=== PATIENT | female | born 1990 | race Caucasian/White ===

== ENCOUNTER 2017-02-28 19:06 | Emergency (ER) | payer OTHER ==
[~2017-02-28] VITALS: Ht 160 cm; Wt 56.2 kg
[~2017-02-28 19:06] MED LIST: ANTIVERT/2525 M1 PO; BACTRIM DS 8001 TA1 PO; CHEWABLE VITE1 CTB PO; CLEOCIN150 MG PO; CLINDAMYCIN150 MG PO; COLACE100 MG PO; FLAGYL500 MG PO; HYDROCODONE BIT1 T11 PO; IBUPROFEN600 MG PO; MACROBID100 M1 PO; MOTRIN800 MG PO; Motrin,Rufen800 MG PO; NORCO 325 MG-51 TAB PO; PERIDEX 480 ML480 ML PO; PRENATAL1 TA3 PO; PROCTOFOAM-HC 11 FOA RC; PROMETHAZINE25 M1 PO; PYRIDIUM200 M1 PO; PYRIDIUM200 MG PO
[2017-02-28] MEDS ORDERED: CYCLOBENZAPRINE5 M3 PO (20:44)
[2017-02-28] MEDS ORDERED: NAPROSYN500 MG PO (20:44)
== END 2017-02-28 20:57 | disposition home or self-care (01) ==
LOC: ED 19:06
DX: R51 Headache (principal); F17.200 Nicotine dependence, unspecified, uncomplicated; Z88.0 Allergy status to penicillin; R11.0 Nausea

== ENCOUNTER 2017-03-21 14:59 | Emergency (ER) | payer OTHER ==
[~2017-03-21] VITALS: Ht 152.4 cm; Wt 63.5 kg
[~2017-03-21 14:59] MED LIST changes: +CYCLOBENZAPRINE5 M3 PO; +NAPROSYN500 MG PO
[2017-03-21] MEDS ORDERED: CYCLOBENZAPRINE10 MG PO (18:32)
[2017-03-21] MEDS ORDERED: NAPROSYN500 MG PO (18:32)
== END 2017-03-21 18:50 | disposition home or self-care (01) ==
LOC: ED 14:59
DX: S16.1XXA Strain of muscle, fascia and tendon at neck level, initial encounter (principal); F17.200 Nicotine dependence, unspecified, uncomplicated; Z88.0 Allergy status to penicillin; Z88.1 Allergy status to other antibiotic agents; X58.XXXA Exposure to other specified factors, initial encounter; Y93.9 Activity, unspecified; Y92.9 Unspecified place or not applicable; Y99.9 Unspecified external cause status

== ENCOUNTER 2017-06-13 13:09 | Emergency (ER) | payer SELFPAY ==
[~2017-06-13] VITALS: Ht 162.5 cm; Wt 59.0 kg
[~2017-06-13 13:09] MED LIST changes: +CYCLOBENZAPRINE10 MG PO
== END 2017-06-13 15:29 | disposition home or self-care (01) ==
LOC: ED 13:09
DX: S96.911A Strain of unspecified muscle and tendon at ankle and foot level, right foot, initial encounter (principal); S90.01XA Contusion of right ankle, initial encounter; F17.200 Nicotine dependence, unspecified, uncomplicated; Z88.0 Allergy status to penicillin; Z88.1 Allergy status to other antibiotic agents; X50.1XXA Overexertion from prolonged static or awkward postures, initial encounter; Y93.01 Activity, walking, marching and hiking; Y92.89 Other specified places as the place of occurrence of the external cause; Y99.9 Unspecified external cause status

== ENCOUNTER 2017-11-03 05:05 | Emergency (ER) | payer OTHER ==
[~2017-11-03] VITALS: Ht 162.5 cm; Wt 54.4 kg
[2017-11-03 05:55] LABS: BILIRUBIN 1+ (NEGATIVE); BLOOD NEGATIVE (NEGATIVE); CLARITY SL CLOUDY (CLEAR); COLOR YELLOW (YELLOW); GLUCOSE NEGATIVE (NEGATIVE); KETONE TRACE (NEGATIVE); LEUKO ESTERASE NEGATIVE (NEGATIVE); NITRITE NEGATIVE (NEGATIVE); PH 6.5 (5.0-9.0); SPECIFIC GRAVITY 1.025 (1.005-1.030)
[2017-11-03 06:04] LABS: BASO % 0.4 % (0.0-1.0); EOS # 0.1 10*3/uL (0.0-0.4); EOS % 2.3 % (1.0-4.0); HEMATOCRIT 39.1 % (37.0-47.0); HEMOGLOBIN 12.9 g/dl (12.0-16.0); LYMPH # 2.1 10*3/uL (1.3-4.4); LYMPH % 38.2 % (27.0-41.0); MEAN CELL VOLUME 94.2 fl (81.0-99.0); MEAN CORPUSCULAR HGB 31.1 pg (27.0-31.0); MEAN PLATELET VOLUME 9.7 fl (9.6-12.3); MONO # 0.3 10*3/uL (0.1-1.0); NEUT % 53.9 % (47.0-73.0); PLATELET COUNT AUTOMATED 172 10*3/uL (130-400); RED BLOOD COUNT 4.15 10*6/uL (4.10-5.10); WHITE BLOOD COUNT 5.6 10*3/uL (4.8-10.8)
[2017-11-03 06:26] LABS: ALBUMIN 3.6 gm/dl (3.1-4.5); ALKALINE PHOSPHATASE 44 U/L (45-117); BUN 12 mg/dl (7-24); CHLORIDE 109 mmol/L (98-107); CREATININE 0.92 mg/dL (0.55-1.02); LIPASE 210 U/L (73-393); POTASSIUM 4.2 mmol/L (3.5-5.1); SGOT/AST 13 IU/L (3-35); SGPT/ALT 12 U/L (12-78); SODIUM 142 mmol/L (136-145); TOTAL PROTEIN 6.3 gm/dL (6.4-8.2)
[2017-11-03 06:33] LABS: BACTERIA 2+; CALCIUM OXALATE CRYSTALS TRACE; MUCOUS 1+
[2017-11-03] MEDS ORDERED: NAPROSYN500 MG PO (10:22)
== END 2017-11-03 10:36 | disposition home or self-care (01) ==
LOC: ED 05:05
PROVIDERS: Emergency Medicine
DX: N83.8 Other noninflammatory disorders of ovary, fallopian tube and broad ligament (principal); F17.200 Nicotine dependence, unspecified, uncomplicated; Z88.1 Allergy status to other antibiotic agents; Z88.0 Allergy status to penicillin; Z79.899 Other long term (current) drug therapy

== ENCOUNTER 2018-04-16 17:42 | Emergency (ER) | payer OTHER ==
[~2018-04-16] VITALS: Wt 52.2 kg
[2018-04-16] MEDS ORDERED: PREDNISONE20 M1 PO (19:58)
[2018-04-16] MEDS ORDERED: CYCLOBENZAPRINE10 MG PO (19:58)
== END 2018-04-16 20:33 | disposition home or self-care (01) ==
LOC: ED 17:42
DX: M43.6 Torticollis (principal); M54.2 Cervicalgia; R20.0 Anesthesia of skin; R20.2 Paresthesia of skin; Z88.0 Allergy status to penicillin; Z88.1 Allergy status to other antibiotic agents; Z88.6 Allergy status to analgesic agent

== ENCOUNTER 2018-09-24 23:59 | Emergency (ER) | payer OTHER ==
[~2018-09-24] VITALS: Ht 162.5 cm; Wt 56.7 kg
[~2018-09-24 23:59] MED LIST changes: +PREDNISONE20 M1 PO
== END 2018-09-25 01:29 | disposition home or self-care (01) ==
LOC: ED 23:59
DX: S46.812A Strain of other muscles, fascia and tendons at shoulder and upper arm level, left arm, initial encounter (principal); F17.200 Nicotine dependence, unspecified, uncomplicated; Z88.0 Allergy status to penicillin; Z88.1 Allergy status to other antibiotic agents; Z88.6 Allergy status to analgesic agent; Z79.899 Other long term (current) drug therapy; W10.8XXA Fall (on) (from) other stairs and steps, initial encounter; Y93.89 Activity, other specified; Y92.89 Other specified places as the place of occurrence of the external cause; Y99.9 Unspecified external cause status

== ENCOUNTER 2019-04-03 20:38 | Emergency (ER) | payer OTHER ==
[~2019-04-03] VITALS: Ht 162.5 cm; Wt 50.8 kg
[2019-04-03 21:28] LABS: BILIRUBIN NEGATIVE (NEGATIVE); BLOOD NEGATIVE (NEGATIVE); CLARITY CLEAR (CLEAR); COLOR YELLOW (YELLOW); GLUCOSE NEGATIVE (NEGATIVE); KETONE NEGATIVE (NEGATIVE); LEUKO ESTERASE NEGATIVE (NEGATIVE); NITRITE NEGATIVE (NEGATIVE); SPECIFIC GRAVITY 1.025 (1.005-1.030); UROBILINOGEN 0.2 E.U./dl (0.2-1.0)
[2019-04-03 21:35] LABS: BACTERIA TRACE; EPITHELIAL CELLS 0-2; RBC 0-2 rbc/hpf (0-2); WBC 0-2 wbc/hpf (0-5)
[2019-04-03] MEDS ORDERED: ROBAXIN500 M1 PO (22:44)
== END 2019-04-03 23:03 | disposition home or self-care (01) ==
LOC: ED 20:38
PROVIDERS: Physician Assistant
DX: M54.5 Low back pain (principal); R20.0 Anesthesia of skin; F17.200 Nicotine dependence, unspecified, uncomplicated; Z88.0 Allergy status to penicillin; Z88.1 Allergy status to other antibiotic agents; Z88.8 Allergy status to other drugs, medicaments and biological substances

== ENCOUNTER 2020-09-07 09:45 | Emergency (ER) | payer OTHER ==
[~2020-09-07] VITALS: Wt 56.7 kg
[~2020-09-07 09:45] MED LIST changes: +ROBAXIN500 M1 PO
[2020-09-07 10:42] LABS: BILIRUBIN Negative (Negative); BLOOD Negative (Negative); CLARITY Clear (Clear); COLOR Yellow (Yellow); GLUCOSE Negative (Negative); KETONE Trace (Negative); LEUKO ESTERASE Negative (Negative); NITRITE Negative (Negative); PH 5.5 (4.5-8.0)
[2020-09-07 10:54] LABS: BACTERIA TRACE; MUCOUS 1+; RBC 0-2 rbc/hpf (0-2)
[2020-09-07] MEDS ORDERED: MACROBID100 M1 PO (11:07)
== END 2020-09-07 12:57 | disposition home or self-care (01) ==
LOC: ED 09:45
PROVIDERS: Nurse Practitioner
DX: R10.30 Lower abdominal pain, unspecified (principal); N64.4 Mastodynia; Z32.02 Encounter for pregnancy test, result negative; Z88.0 Allergy status to penicillin; Z88.1 Allergy status to other antibiotic agents; Z88.8 Allergy status to other drugs, medicaments and biological substances

== ENCOUNTER → 2021-07-30 | Emergency (ER) | payer OTHER ==
[~2021-07-30] VITALS: Ht 162.5 cm; Wt 61.2 kg
== END ==
LOC: ED 16:23
DX: S50.12XA Contusion of left forearm, initial encounter (principal); Z88.0 Allergy status to penicillin; Z88.1 Allergy status to other antibiotic agents; Z88.8 Allergy status to other drugs, medicaments and biological substances; W18.39XA Other fall on same level, initial encounter; Y93.89 Activity, other specified; Y92.89 Other specified places as the place of occurrence of the external cause; Y99.8 Other external cause status

== ENCOUNTER 2022-04-13 01:42 | Emergency (ER) | payer OTHER ==
[~2022-04-13] VITALS: Ht 162.5 cm; Wt 59.0 kg
[2022-04-13] MEDS ORDERED: CLINDAMYCIN HC300 MG PO ×2 (02:07)
[2022-04-13] MEDS ORDERED: PREDNISONE20 M1 PO ×2 (02:07)
== END 2022-04-13 02:13 | disposition home or self-care (01) ==
LOC: ED 01:42
DX: R21 Rash and other nonspecific skin eruption (principal); Z88.0 Allergy status to penicillin; Z88.1 Allergy status to other antibiotic agents; Z88.6 Allergy status to analgesic agent

== ENCOUNTER 2022-04-18 19:30 | Emergency (ER) | payer OTHER ==
[~2022-04-18] VITALS: Ht 162.5 cm; Wt 61.2 kg
[~2022-04-18 19:30] MED LIST changes: +CLINDAMYCIN HC300 MG PO
== END 2022-04-18 21:55 | disposition home or self-care (01) ==
LOC: ED 19:30
DX: M79.645 Pain in left finger(s) (principal); Z88.0 Allergy status to penicillin; Z88.1 Allergy status to other antibiotic agents; Z88.8 Allergy status to other drugs, medicaments and biological substances

== ENCOUNTER 2022-04-27 23:02 | Emergency (ER) | payer OTHER ==
[~2022-04-27] VITALS: Ht 162.5 cm; Wt 61.2 kg
== END 2022-04-28 00:52 | disposition left against medical advice (07) ==
LOC: ED 23:02
DX: L02.415 Cutaneous abscess of right lower limb (principal); Z53.21 Procedure and treatment not carried out due to patient leaving prior to being seen by health care provider

== ENCOUNTER 2022-05-14 22:20 | Emergency (ER) | payer OTHER ==
[2022-05-14] MEDS ORDERED: BACITRACIN28.4 GM TP (23:38)
[2022-05-14] MEDS ORDERED: CEPHALEXIN500 M1 PO (23:38)
== END 2022-05-14 23:51 | disposition home or self-care (01) ==
LOC: ED 22:20
DX: L81.8 Other specified disorders of pigmentation (principal); Z88.0 Allergy status to penicillin; Z88.1 Allergy status to other antibiotic agents; Z88.8 Allergy status to other drugs, medicaments and biological substances

== ENCOUNTER 2022-06-19 20:53 | Emergency (ER) | payer OTHER ==
[~2022-06-19 20:53] MED LIST changes: +BACITRACIN28.4 GM TP; +CEPHALEXIN500 M1 PO
== END 2022-06-19 22:50 | disposition left against medical advice (07) ==
LOC: ED 20:53
DX: Z53.21 Procedure and treatment not carried out due to patient leaving prior to being seen by health care provider (principal)

== ENCOUNTER 2022-07-15 09:37 | Emergency (ER) | payer OTHER ==
[~2022-07-15] VITALS: Ht 162.5 cm; Wt 61.2 kg
[2022-07-15] MEDS ORDERED: ONDANSETRON4 MG SL (10:11)
[2022-07-15] MEDS ORDERED: Motrin,Rufen800 MG PO (10:11)
== END 2022-07-15 10:21 | disposition home or self-care (01) ==
LOC: ED 09:37
DX: U07.1 COVID-19 (principal); Z88.0 Allergy status to penicillin; Z88.1 Allergy status to other antibiotic agents; Z88.8 Allergy status to other drugs, medicaments and biological substances

== ENCOUNTER 2022-11-13 13:10 | Emergency (ER) | payer MEDICAID ==
[~2022-11-13] VITALS: Ht 162.5 cm; Wt 63.0 kg
[~2022-11-13 13:10] MED LIST changes: +ONDANSETRON4 MG SL
[2022-11-13] MEDS ORDERED: TYLENOL325 M1 PO (14:09)
== END 2022-11-13 14:56 | disposition home or self-care (01) ==
LOC: ED 13:10
DX: M25.511 Pain in right shoulder (principal); Z88.0 Allergy status to penicillin; Z88.1 Allergy status to other antibiotic agents; Z88.8 Allergy status to other drugs, medicaments and biological substances; Z98.890 Other specified postprocedural states

== ENCOUNTER 2023-09-26 11:47 | Emergency (ER) | payer MEDICAID ==
[~2023-09-26] VITALS: Ht 160 cm; Wt 63.5 kg
[~2023-09-26 11:47] MED LIST changes: +TYLENOL325 M1 PO
[2023-09-26] MEDS ORDERED: PREDNISONE20 M1 PO (12:23)
== END 2023-09-26 12:48 | disposition home or self-care (01) ==
LOC: ED 11:47
DX: M54.50 Low back pain, unspecified (principal); G89.29 Other chronic pain; M79.605 Pain in left leg; M79.604 Pain in right leg; Z88.0 Allergy status to penicillin; Z88.1 Allergy status to other antibiotic agents; Z88.6 Allergy status to analgesic agent; Z98.890 Other specified postprocedural states

== ENCOUNTER 2023-11-18 20:08 | Emergency (ER) | payer MEDICAID ==
[~2023-11-18] VITALS: Ht 162.5 cm; Wt 59.0 kg
[2023-11-18 20:43] LABS: BILIRUBIN Negative (Negative); BLOOD Negative (Negative); CLARITY Cloudy (Clear); COLOR Yellow (Yellow); GLUCOSE Negative (Negative); KETONE Trace (Negative); LEUKO ESTERASE Negative (Negative); NITRITE Negative (Negative); SPECIFIC GRAVITY >= 1.030 (1.001-1.030)
[2023-11-18] MEDS ORDERED: MORPHINE Sulfate 2 MG/ML SYR IV ONE (20:45)
[2023-11-18] MEDS ORDERED: Ondansetron Hydrochloride 4 MG/2 ML VIAL IV ONE (20:45)
[2023-11-18] MEDS ORDERED: SODIUM CHLORIDE 0.9% 1,000 ML IV ONE (20:45)
[2023-11-18] MEDS ORDERED: IOHEXOL 300 MG/ML 100 ML VIAL IV ONE (20:45)
[2023-11-18 20:56] LABS: BACTERIA 1+; MUCOUS 3+
[2023-11-18 21:01] LABS: BASO % 0.5 % (0.0-1.0); EOS # 0.1 10*3/uL (0.0-0.4); EOS % 1.2 % (1.0-4.0); HEMATOCRIT 41.2 % (37.0-47.0); LYMPH # 2.1 10*3/uL (1.3-4.4); LYMPH % 32.1 % (27.0-41.0); MEAN CELL VOLUME 94.3 fl (81.0-99.0); MEAN CORPUSCULAR HGB 30.9 pg (27.0-31.0); MEAN CORPUSCULAR HGB CONC 32.8 g/dl (33.0-37.0); MEAN PLATELET VOLUME 9.4 fl (9.6-12.3); MONO # 0.4 10*3/uL (0.1-1.0); MONO % 6.1 % (3.0-9.0); NEUT # 3.9 10*3/uL (2.3-7.9); NEUT % 59.8 % (47.0-73.0); PLATELET COUNT AUTOMATED 213 10*3/uL (130-400); RED BLOOD COUNT 4.37 10*6/uL (4.10-5.10); RED CELL DISTRI WIDTH 12.8 % (0-14.5); WHITE BLOOD COUNT 6.6 10*3/uL (4.8-10.8)
[2023-11-18 21:23] LABS: ALKALINE PHOSPHATASE 56 U/L (46-116); BUN 6 mg/dl (9-23); CHLORIDE 107 mmol/L (98-107); LIPASE 57 U/L (12-53); POTASSIUM 3.8 mmol/L (3.4-5.1); SGPT/ALT 9 U/L (5-49); TOTAL PROTEIN 6.7 gm/dL (6.0-8.0)
[2023-11-19] MEDS ORDERED: METRONIDAZOLE500 M1 PO (15:35)
== END 2023-11-19 02:19 | disposition home or self-care (01) ==
LOC: ED 20:08
PROVIDERS: Emergency Medicine; Physician Assistant
DX: R10.2 Pelvic and perineal pain (principal); R11.0 Nausea; F17.200 Nicotine dependence, unspecified, uncomplicated; Z88.0 Allergy status to penicillin; Z88.1 Allergy status to other antibiotic agents; Z88.8 Allergy status to other drugs, medicaments and biological substances; Z79.899 Other long term (current) drug therapy

== ENCOUNTER 2023-11-19 14:17 | Emergency (ER) | payer MEDICAID ==
[~2023-11-19] VITALS: Ht 162.5 cm; Wt 57.2 kg
[2023-11-19] MEDS ORDERED: Gentamicin Sulfate 80 MG/2 ML VIAL IM ONE (15:30)
[2023-11-19] MEDS ORDERED: AZITHROMYCIN 250 MG TAB PO ONE ×2 (15:30)
[2023-11-19] MEDS ORDERED: METRONIDAZOLE500 M1 PO (15:35)
== END 2023-11-19 15:55 | disposition home or self-care (01) ==
LOC: ED 14:17
DX: R10.31 Right lower quadrant pain (principal); R10.2 Pelvic and perineal pain; Z11.3 Encounter for screening for infections with a predominantly sexual mode of transmission; F17.200 Nicotine dependence, unspecified, uncomplicated; Z88.0 Allergy status to penicillin; Z88.1 Allergy status to other antibiotic agents; Z88.8 Allergy status to other drugs, medicaments and biological substances; Z79.899 Other long term (current) drug therapy

== ENCOUNTER 2024-02-06 07:54 | Emergency (ER) | payer MEDICAID ==
[~2024-02-06] VITALS: Ht 162.5 cm; Wt 61.2 kg
[~2024-02-06 07:54] MED LIST changes: +METRONIDAZOLE500 M1 PO
[2024-02-06] MEDS ORDERED: ACETAMINOPHEN 325 MG TAB PO ONE (08:25)
[2024-02-06] MEDS ORDERED: Ondansetron Hydrochloride 4 MG TAB PO ONE (08:25)
[2024-02-06] MEDS ORDERED: ONDANSETRON HYDR4 M1 PO (08:34)
[2024-02-06] MEDS ORDERED: TYLENOL EXTRA500 MG PO (08:34)
[2024-02-06 08:46] LABS: BILIRUBIN Negative (Negative); BLOOD Negative (Negative); CLARITY Cloudy (Clear); COLOR Yellow (Yellow); GLUCOSE Negative (Negative); KETONE Trace (Negative); LEUKO ESTERASE Negative (Negative); NITRITE Negative (Negative); SPECIFIC GRAVITY >= 1.030 (1.001-1.030)
[2024-02-06 08:47] LABS: BASO % 0.5 % (0.0-1.0); EOS # 0.1 10*3/uL (0.0-0.4); EOS % 1.5 % (1.0-4.0); HEMATOCRIT 40.6 % (37.0-47.0); LYMPH % 25.2 % (27.0-41.0); MEAN CELL VOLUME 94.6 fl (81.0-99.0); MEAN CORPUSCULAR HGB 31.7 pg (27.0-31.0); MEAN CORPUSCULAR HGB CONC 33.5 g/dl (33.0-37.0); MEAN PLATELET VOLUME 9.4 fl (9.6-12.3); MONO # 0.4 10*3/uL (0.1-1.0); MONO % 5.4 % (3.0-9.0); NEUT # 5.2 10*3/uL (2.3-7.9); NEUT % 67.3 % (47.0-73.0); PLATELET COUNT AUTOMATED 217 10*3/uL (130-400); RED BLOOD COUNT 4.29 10*6/uL (4.10-5.10); RED CELL DISTRI WIDTH 12.7 % (0-14.5); WHITE BLOOD COUNT 7.8 10*3/uL (4.8-10.8)
[2024-02-06 09:17] LABS: ALKALINE PHOSPHATASE 59 U/L (46-116); BUN 10 mg/dl (9-23); CHLORIDE 106 mmol/L (98-107); POTASSIUM 3.5 mmol/L (3.4-5.1); SGPT/ALT 7 U/L (5-49); TOTAL PROTEIN 6.6 gm/dL (6.0-8.0)
[2024-02-06 09:41] LABS: BACTERIA 2+; RBC 0-2 rbc/hpf (0-2); WBC 0-2 wbc/hpf (0-5)
== END 2024-02-06 10:19 | disposition home or self-care (01) ==
LOC: ED 07:54
PROVIDERS: Emergency Medicine
DX: R51.9 Headache, unspecified (principal); R11.0 Nausea; R10.13 Epigastric pain; R53.83 Other fatigue; Z88.0 Allergy status to penicillin; Z88.1 Allergy status to other antibiotic agents; Z88.8 Allergy status to other drugs, medicaments and biological substances; W22.8XXA Striking against or struck by other objects, initial encounter; Y93.89 Activity, other specified; Y92.810 Car as the place of occurrence of the external cause; Y99.8 Other external cause status

== ENCOUNTER 2024-03-13 06:34 | Emergency (ER) | payer MEDICAID ==
[~2024-03-13] VITALS: Ht 162.5 cm; Wt 61.2 kg
[~2024-03-13 06:34] MED LIST changes: +ONDANSETRON HYDR4 M1 PO; +TYLENOL EXTRA500 MG PO
[2024-03-13] MEDS ORDERED: Dexamethasone Sodium Phospha 20 MG/5 ML VIAL IM ONE (06:55)
[2024-03-13] MEDS ORDERED: Ketorolac Tromethamine 15 MG/ML VIAL IM ONE (06:55)
[2024-03-13] MEDS ORDERED: IBUPROFEN400 MG PO (07:30)
[2024-03-13] MEDS ORDERED: LIDOCAINE 1 EA PATCH T ONE (07:30)
[2024-03-13] MEDS ORDERED: ASPERCREME LID1 EACH T (07:30)
== END 2024-03-13 07:46 | disposition home or self-care (01) ==
LOC: ED 06:34
DX: S49.92XA Unspecified injury of left shoulder and upper arm, initial encounter (principal); Z88.0 Allergy status to penicillin; Z88.1 Allergy status to other antibiotic agents; Z88.6 Allergy status to analgesic agent; Z98.890 Other specified postprocedural states; Z87.891 Personal history of nicotine dependence; W22.8XXA Striking against or struck by other objects, initial encounter; Y93.89 Activity, other specified; Y92.89 Other specified places as the place of occurrence of the external cause; Y99.8 Other external cause status

== ENCOUNTER 2024-08-19 21:45 | Emergency (ER) | payer MEDICAID ==
[~2024-08-19] VITALS: Ht 162.5 cm; Wt 59.0 kg
[~2024-08-19 21:45] MED LIST changes: +ASPERCREME LID1 EACH T; +IBUPROFEN400 MG PO
[2024-08-19] MEDS ORDERED: Ondansetron Hydrochloride 4 MG TAB PO ONE (22:10)
[2024-08-19] MEDS ORDERED: Tdap Vaccine 0.5 ML SYR (Adult Vaccine) IM ONE (22:10)
[2024-08-19] MEDS ORDERED: Sulfamethoxazole/Trimethopri 1 TAB TAB PO ONE (22:10)
[2024-08-19] MEDS ORDERED: Ondansetron4 MG PO (22:12)
[2024-08-19] MEDS ORDERED: SEPTDS PO (22:12)
== END 2024-08-19 22:40 | disposition home or self-care (01) ==
LOC: ED 21:45
DX: S91.331A Puncture wound without foreign body, right foot, initial encounter (principal); R11.0 Nausea; Z88.0 Allergy status to penicillin; Z88.1 Allergy status to other antibiotic agents; Z88.6 Allergy status to analgesic agent; Z98.890 Other specified postprocedural states; X58.XXXA Exposure to other specified factors, initial encounter; Y93.89 Activity, other specified; Y92.89 Other specified places as the place of occurrence of the external cause; Y99.8 Other external cause status

== ENCOUNTER 2024-12-24 21:02 | Emergency (ER) | payer SELFPAY ==
[~2024-12-24] VITALS: Ht 162.5 cm; Wt 59.4 kg
[~2024-12-24 21:02] MED LIST changes: +Ondansetron4 MG PO; +SEPTDS PO
[2024-12-24 21:40] LABS: BILIRUBIN Negative (Negative); BLOOD Negative (Negative); CLARITY Clear (Clear); COLOR Yellow (Yellow); GLUCOSE Negative (Negative); KETONE Trace (Negative); LEUKO ESTERASE Trace (Negative); NITRITE Negative (Negative); PH 6.5 (4.5-8.0); SPECIFIC GRAVITY 1.025 (1.001-1.030)
[2024-12-24 21:58] LABS: BACTERIA 2+
[2024-12-24 22:01] LABS: BASO % 0.4 % (0.0-1.0); EOS # 0.1 10*3/uL (0.0-0.4); EOS % 2.1 % (1.0-4.0); HEMATOCRIT 41.9 % (37.0-47.0); MEAN CELL VOLUME 92.9 fl (81.0-99.0); MEAN CORPUSCULAR HGB CONC 33.4 g/dl (33.0-37.0); MEAN PLATELET VOLUME 9.3 fl (9.6-12.3); MONO # 0.4 10*3/uL (0.1-1.0); MONO % 6.2 % (3.0-9.0); NEUT # 3.5 10*3/uL (2.3-7.9); NEUT % 52.5 % (47.0-73.0); PLATELET COUNT AUTOMATED 222 10*3/uL (130-400); RED BLOOD COUNT 4.51 10*6/uL (4.10-5.10); RED CELL DISTRI WIDTH 13.2 % (0-14.5); WHITE BLOOD COUNT 6.8 10*3/uL (4.8-10.8)
[2024-12-24] MEDS ORDERED: Ondansetron Hydrochloride 4 MG/2 ML VIAL IV ONE (22:15)
[2024-12-24] MEDS ORDERED: HYDROmorphONE Hydrochloride 0.5 MG/0.5 ML SYRINGE IV ONE ×2 (22:15→22:25)
[2024-12-24 22:20] LABS: ALKALINE PHOSPHATASE 52 U/L (46-116); BUN 9 mg/dl (9-23); CHLORIDE 106 mmol/L (98-107); POTASSIUM 3.7 mmol/L (3.4-5.1); SGPT/ALT 8 U/L (5-49); TOTAL PROTEIN 6.6 gm/dL (6.0-8.0)
[2024-12-24] MEDS ORDERED: Ondansetron Hydrochloride 4 MG TAB SL ONE (22:25)
[2024-12-25] MEDS ORDERED: CEPHALEXIN500 M1 PO (00:34)
[2024-12-25] MEDS ORDERED: MIRALAX POWDER17 G1 PO (00:34)
[2024-12-25] MEDS ORDERED: CEPHALEXIN 500 MG CAP PO ONE (00:35)
== END 2024-12-25 00:43 | disposition home or self-care (01) ==
LOC: ED 21:02
PROVIDERS: Nurse Practitioner Family
DX: K59.00 Constipation, unspecified (principal); R82.71 Bacteriuria; Z88.0 Allergy status to penicillin; Z88.1 Allergy status to other antibiotic agents; Z88.8 Allergy status to other drugs, medicaments and biological substances; Z79.899 Other long term (current) drug therapy

== ENCOUNTER 2025-02-26 21:24 | Emergency (ER) | payer OTHER ==
[~2025-02-26] VITALS: Ht 162.5 cm; Wt 63.5 kg
[~2025-02-26 21:24] MED LIST changes: +MIRALAX POWDER17 G1 PO
[2025-02-26] MEDS ORDERED: IBUPROFEN 400 MG 4 TAB ED PACK PO ONE (21:50)
[2025-02-26] MEDS ORDERED: Doxycycline Hyclate 100 MG CAPSULE PO ONE (21:50)
[2025-02-26] MEDS ORDERED: VIBRAMYCIN100 MG PO (21:54)
== END 2025-02-26 22:00 | disposition home or self-care (01) ==
LOC: ED 21:24
DX: S80.862A Insect bite (nonvenomous), left lower leg, initial encounter (principal); Z79.899 Other long term (current) drug therapy; Z88.0 Allergy status to penicillin; Z88.1 Allergy status to other antibiotic agents; Z88.8 Allergy status to other drugs, medicaments and biological substances; W57.XXXA Bitten or stung by nonvenomous insect and other nonvenomous arthropods, initial encounter; Y93.89 Activity, other specified; Y92.89 Other specified places as the place of occurrence of the external cause; Y99.8 Other external cause status

== ENCOUNTER 2025-07-06 18:35 | Emergency (ER) | payer OTHER ==
[~2025-07-06] VITALS: Ht 160 cm; Wt 63.5 kg
[~2025-07-06 18:35] MED LIST changes: +VIBRAMYCIN100 MG PO
[2025-07-06] MEDS ORDERED: CLARITIN10 MG PO (19:19)
[2025-07-06] MEDS ORDERED: FLONASE ALLERG9.9 ML NAS (19:19)
[2025-07-06] MEDS ORDERED: LORATADINE 10 MG TAB PO ONE (19:20)
[2025-07-06] MEDS ORDERED: ACETAMINOPHEN 325 MG TAB PO ONE (19:20)
== END 2025-07-06 19:21 | disposition home or self-care (01) ==
LOC: ED 18:35
DX: J06.9 Acute upper respiratory infection, unspecified (principal); J02.9 Acute pharyngitis, unspecified; F17.210 Nicotine dependence, cigarettes, uncomplicated; Z88.0 Allergy status to penicillin; Z88.1 Allergy status to other antibiotic agents; Z88.8 Allergy status to other drugs, medicaments and biological substances; Z79.899 Other long term (current) drug therapy